=== PATIENT | male | born 1960 | race Caucasian/White ===

== ENCOUNTER 2018-04-18 17:54 | Inpatient (IN) | payer OTHER ==
[2018-04-18] MEDS: morphine 4 MG/ML VIAL IV (21:53)
[2018-04-18] MEDS: SOD CHLORIDE 0.9% 1,000 ML IV (21:53)
[2018-04-18] MEDS: FAMOTIDINE 20 MG INJ IV (21:53)
[2018-04-18] MEDS: ONDANSETRON 4 MG INJ IV (21:53)
[2018-04-18 22:13] LABS: ADD MAN DIFF? NO
[2018-04-18 22:16] LABS: ABNORMAL IP MESSAGE 1; BASOPHILS % 0.2 % (0.0-2.0); EOSINOPHILS # 0.9 10^3/ul (0.0-0.5); EOSINOPHILS % 5.2 % (0.0-7.0); HEMOGLOBIN 15.4 g/dl (14.0-18.0); LYMPHOCYTES # 1.3 10^3/ul (0.8-2.9); LYMPHOCYTES % 7.5 % (15.0-51.0); MEAN CORPUSCULAR HEMOGLOBIN 28.8 pg (29.0-33.0); MEAN CORPUSCULAR HGB CONC 34.2 g/dl (32.0-37.0); MEAN CORPUSCULAR VOLUME 84.1 fl (82.0-101.0); MEAN PLATELET VOLUME 10.1 fl (7.4-10.4); MONOCYTE # 1.8 10^3/ul (0.3-0.9); MONOCYTES % 10.4 % (0.0-11.0); NEUTROPHIL # 12.9 10^3/ul (1.6-7.5); NEUTROPHILS % 76.1 % (39.0-77.0); PLATELET COUNT 317 10^3/UL (140-415); POSITIVE DIFF @See below; RED BLOOD COUNT 5.35 10^6/ul (4.70-6.10); RED CELL DISTRIBUTION WIDTH 12.9 % (11.5-14.5)
[2018-04-18 22:19] LABS: ADD UMIC YES; UR ASCORBIC ACID 20 mg/dL (NEGATIVE); UR BACTERIA FEW /HPF (NONE SEEN); UR BILIRUBIN (Dip) NEGATIVE (NEGATIVE); UR BLOOD (Dip) NEGATIVE (NEGATIVE); UR CLARITY CLEAR (CLEAR); UR COLOR YELLOW (YELLOW); UR GLUCOSE (Dip) NEGATIVE (NEGATIVE); UR KETONES (Dip) NEGATIVE (NEGATIVE); UR LEUKOCYTE ESTERASE (Dip) NEGATIVE Leu/ul (NEGATIVE); UR NITRITE (Dip) NEGATIVE (NEGATIVE); UR RBC 0 /HPF (0-5); UR SPECIFIC GRAVITY (Dip) 1.018 (1.003-1.030); UR TOTAL PROTEIN (Dip) 2+ mg/dl (NEGATIVE); UR UROBILINOGEN (Dip) NEGATIVE (NEGATIVE); UR WBC 1 /HPF (0-5)
[2018-04-18 22:50] LABS: ALANINE AMINOTRANSFERASE 38 IU/L (13-69); ALBUMIN 4.9 g/dl (3.3-4.9); ALBUMIN/GLOBULIN RATIO 1.58; ALKALINE PHOSPHATASE 53 IU/L (42-121); ANION GAP 15 (5-13); ASPARTATE AMINO TRANSFERASE 42 IU/L (15-46); BILIRUBIN,INDIRECT 0.3 mg/dl (0-1.1); BILIRUBIN,TOTAL 0.3 mg/dl (0.2-1.3); BLOOD UREA NITROGEN 77 mg/dl (7-20); CALCIUM 9.7 mg/dl (8.4-10.2); CARBON DIOXIDE 22 mmol/L (21-31); CHLORIDE 96 mmol/L (97-110); CREATININE 3.04 mg/dl (0.61-1.24); Estimated GFR 21 mL/min (>60); GLUCOSE 106 mg/dl (70-220); LIPASE 905 U/L (23-300); POTASSIUM 4.2 mmol/L (3.5-5.1); SODIUM 133 mmol/L (135-144)
[2018-04-19] MEDS ORDERED: DOCUSATE SODIUM 100 MG CAP PO
[2018-04-19] MEDS ORDERED: NACL 0.9% 3 ML SYG IV
[2018-04-19] MEDS ORDERED: BISACODYL (EC) 5 MG TAB PO
[2018-04-19 00:14] LABS: ETHANOL < 10.0 mg/dl (0-0)
[2018-04-19] MEDS: SOD CHLORIDE 0.9% 1,000 ML IV ×5 (01:31→19:44)
[2018-04-19 01:34] LABS: SODIUM,URINE RANDOM < 13 mmol/L (30-90)
[2018-04-19 01:36] LABS: CREATININE,URINE RANDOM 159.22 mg/dl (20-370); PROTEIN/CREAT RATIO 0.38 RATIO
[2018-04-19 05:15] LABS: ADD MAN DIFF? NO
[2018-04-19 05:24] LABS: WHITE BLOOD COUNT 17.7 10^3/ul (4.8-10.8)
[2018-04-19 05:24] LABS: ABNORMAL IP MESSAGE 1; BASOPHILS % 0.2 % (0.0-2.0); EOSINOPHILS # 1.4 10^3/ul (0.0-0.5); EOSINOPHILS % 7.7 % (0.0-7.0); HEMATOCRIT 37.8 % (42.0-52.0); HEMOGLOBIN 13.1 g/dl (14.0-18.0); LYMPHOCYTES # 1.9 10^3/ul (0.8-2.9); LYMPHOCYTES % 10.7 % (15.0-51.0); MEAN CORPUSCULAR HEMOGLOBIN 29.2 pg (29.0-33.0); MEAN CORPUSCULAR HGB CONC 34.7 g/dl (32.0-37.0); MEAN CORPUSCULAR VOLUME 84.4 fl (82.0-101.0); MONOCYTES % 11.3 % (0.0-11.0); NEUTROPHIL # 12.3 10^3/ul (1.6-7.5); NEUTROPHILS % 69.5 % (39.0-77.0); PLATELET COUNT 257 10^3/UL (140-415); POSITIVE DIFF @See below; RED BLOOD COUNT 4.48 10^6/ul (4.70-6.10); RED CELL DISTRIBUTION WIDTH 12.9 % (11.5-14.5)
[2018-04-19 05:51] LABS: ALANINE AMINOTRANSFERASE 33 IU/L (13-69); ALBUMIN 3.6 g/dl (3.3-4.9); ALBUMIN/GLOBULIN RATIO 1.28; ALKALINE PHOSPHATASE 35 IU/L (42-121); ANION GAP 10 (5-13); ASPARTATE AMINO TRANSFERASE 28 IU/L (15-46); BILIRUBIN,INDIRECT 0.4 mg/dl (0-1.1); BILIRUBIN,TOTAL 0.4 mg/dl (0.2-1.3); BLOOD UREA NITROGEN 68 mg/dl (7-20); CALCIUM 8.4 mg/dl (8.4-10.2); CARBON DIOXIDE 22 mmol/L (21-31); CHLORIDE 102 mmol/L (97-110); CHOL/HDL RATIO 4.4 RATIO; CHOLESTEROL 103 mg/dl (100-200); CREATININE 2.48 mg/dl (0.61-1.24); Estimated GFR 27 mL/min (>60); GLUCOSE 84 mg/dl (70-220); HDL CHOLESTEROL 23 mg/dl (30-78); LDL CHOLESTEROL,CALCULATED 56 mg/dl; MAGNESIUM 2.2 mg/dl (1.7-2.5); POTASSIUM 4.2 mmol/L (3.5-5.1); SODIUM 134 mmol/L (135-144); TOTAL PROTEIN 6.4 g/dl (6.1-8.1); TRIGLYCERIDES 118 mg/dl (0-149)
[2018-04-19 06:43] LABS: HEMOGLOBIN A1C 6.1 % (0-5.9)
[2018-04-19 07:32] LABS: LIPASE 3211 U/L (23-300)
[2018-04-19] MEDS ORDERED: LISINOPRIL 20 MG TAB PO (09:00)
[2018-04-19] MEDS: AMLODIPINE 5 MG TAB PO (10:41)
[2018-04-19] MEDS ORDERED: GLUCOSE GEL 15 GRAM TUBE PO ×2 (17:00)
[2018-04-19] MEDS ORDERED: GLUCAGON 1 MG INJ IM (17:00)
[2018-04-19] MEDS ORDERED: GLUCOSE GEL 15 GRAM TUBE BUCCAL (17:00)
[2018-04-19] MEDS ORDERED: DEXTROSE 50% 50 ML SYRINGE IV ×2 (17:00)
[2018-04-19] MEDS: metroNIDAZOLE 500 MG/NS (PMX) 100 ML IVPB (17:27)
[2018-04-19] MEDS: INSULIN ASPART [NOVOLOG] 3 ML PEN SC ×2 (17:46→20:16)
[2018-04-19] MEDS: CIPROFLOXACIN 400MG/D5W 200 ML IVPB (18:46)
[2018-04-19] MEDS: INFLUENZA VIRUS VACCINE 0.5 ML (DISPENSING) IM* (18:49)
[2018-04-19] MEDS: HYDROmorphONE 0.5 MG/0.5 ML SYG IV (20:37)
[2018-04-20] MEDS: SOD CHLORIDE 0.9% 1,000 ML IV ×5 (00:09→20:44)
[2018-04-20] MEDS: ACCU-CHEK XX (02:00)
[2018-04-20 05:03] LABS: ADD MAN DIFF? NO
[2018-04-20 05:06] LABS: BASOPHILS % 0.2 % (0.0-2.0); EOSINOPHILS # 1.4 10^3/ul (0.0-0.5); EOSINOPHILS % 10.6 % (0.0-7.0); HEMATOCRIT 35.6 % (42.0-52.0); HEMOGLOBIN 12.2 g/dl (14.0-18.0); LYMPHOCYTES % 7.8 % (15.0-51.0); MEAN CORPUSCULAR HEMOGLOBIN 29.3 pg (29.0-33.0); MEAN CORPUSCULAR HGB CONC 34.3 g/dl (32.0-37.0); MEAN CORPUSCULAR VOLUME 85.4 fl (82.0-101.0); MEAN PLATELET VOLUME 9.8 fl (7.4-10.4); MONOCYTE # 1.4 10^3/ul (0.3-0.9); MONOCYTES % 10.9 % (0.0-11.0); NEUTROPHIL # 9.1 10^3/ul (1.6-7.5); PLATELET COUNT 234 10^3/UL (140-415); RED BLOOD COUNT 4.17 10^6/ul (4.70-6.10); RED CELL DISTRIBUTION WIDTH 12.5 % (11.5-14.5)
[2018-04-20] MEDS: metroNIDAZOLE 500 MG/NS (PMX) 100 ML IVPB ×3 (05:07→20:57)
[2018-04-20 05:30] LABS: MAGNESIUM 2.2 mg/dl (1.7-2.5)
[2018-04-20 05:30] LABS: LIPASE 742 U/L (23-300)
[2018-04-20 05:41] LABS: ALANINE AMINOTRANSFERASE 34 IU/L (13-69); ALBUMIN 3.2 g/dl (3.3-4.9); ALBUMIN/GLOBULIN RATIO 1.33; ALKALINE PHOSPHATASE 35 IU/L (42-121); ANION GAP 14 (5-13); ASPARTATE AMINO TRANSFERASE 20 IU/L (15-46); BILIRUBIN,INDIRECT 0.3 mg/dl (0-1.1); BILIRUBIN,TOTAL 0.3 mg/dl (0.2-1.3); BLOOD UREA NITROGEN 41 mg/dl (7-20); CALCIUM 8.2 mg/dl (8.4-10.2); CARBON DIOXIDE 23 mmol/L (21-31); CHLORIDE 102 mmol/L (97-110); CREATININE 1.75 mg/dl (0.61-1.24); Estimated GFR 40 mL/min (>60); GLUCOSE 96 mg/dl (70-220); POTASSIUM 4.3 mmol/L (3.5-5.1); SODIUM 139 mmol/L (135-144); TOTAL PROTEIN 5.6 g/dl (6.1-8.1)
[2018-04-20 05:56] LABS: THYROID STIMULATING HORMONE 0.787 MIU/L (0.465-4.680)
[2018-04-20] MEDS: INSULIN ASPART [NOVOLOG] 3 ML PEN SC ×4 (07:50→21:00)
[2018-04-20] MEDS: CIPROFLOXACIN 400MG/D5W 200 ML IVPB ×2 (08:29→20:56)
[2018-04-20] MEDS: FAMOTIDINE 20 MG INJ IV (08:29)
[2018-04-20] MEDS: AMLODIPINE 5 MG TAB PO (08:30)
[2018-04-20] MEDS: ENOXAPARIN 30 MG/0.3 ML SYG SC (08:32)
[2018-04-20] MEDS: ACETAMINOPHEN 325 MG TAB PO (10:02)
[2018-04-21] MEDS: SOD CHLORIDE 0.9% 1,000 ML IV (01:54)
[2018-04-21] MEDS: HYDROmorphONE 0.5 MG/0.5 ML SYG IV ×3 (01:54→19:38)
[2018-04-21] MEDS: ACCU-CHEK XX (02:00)
[2018-04-21] MEDS: metroNIDAZOLE 500 MG/NS (PMX) 100 ML IVPB ×2 (05:51→14:10)
[2018-04-21] MEDS: PANTOPRAZOLE 40 MG INJ IV (05:51)
[2018-04-21] MEDS: INSULIN ASPART [NOVOLOG] 3 ML PEN SC ×4 (07:50→21:00)
[2018-04-21] MEDS: CIPROFLOXACIN 400MG/D5W 200 ML IVPB (08:34)
[2018-04-21 08:35] LABS: ADD MAN DIFF? NO
[2018-04-21] MEDS: AMLODIPINE 5 MG TAB PO (08:35)
[2018-04-21] MEDS: ENOXAPARIN 30 MG/0.3 ML SYG SC (08:39)
[2018-04-21 08:53] LABS: WHITE BLOOD COUNT 10.2 10^3/ul (4.8-10.8)
[2018-04-21 08:53] LABS: BASOPHILS % 0.4 % (0.0-2.0); EOSINOPHILS # 1.4 10^3/ul (0.0-0.5); EOSINOPHILS % 13.9 % (0.0-7.0); HEMATOCRIT 35.2 % (42.0-52.0); LYMPHOCYTES # 1.1 10^3/ul (0.8-2.9); LYMPHOCYTES % 10.5 % (15.0-51.0); MEAN CORPUSCULAR HEMOGLOBIN 29.3 pg (29.0-33.0); MEAN CORPUSCULAR HGB CONC 34.1 g/dl (32.0-37.0); MEAN CORPUSCULAR VOLUME 86.1 fl (82.0-101.0); MEAN PLATELET VOLUME 9.8 fl (7.4-10.4); MONOCYTE # 1.1 10^3/ul (0.3-0.9); MONOCYTES % 10.9 % (0.0-11.0); NEUTROPHIL # 6.5 10^3/ul (1.6-7.5); NEUTROPHILS % 63.7 % (39.0-77.0); PLATELET COUNT 210 10^3/UL (140-415); RED BLOOD COUNT 4.09 10^6/ul (4.70-6.10); RED CELL DISTRIBUTION WIDTH 12.2 % (11.5-14.5)
[2018-04-21 09:11] LABS: ANION GAP 10 (5-13); BLOOD UREA NITROGEN 24 mg/dl (7-20); CALCIUM 8.2 mg/dl (8.4-10.2); CARBON DIOXIDE 26 mmol/L (21-31); CHLORIDE 101 mmol/L (97-110); CREATININE 1.54 mg/dl (0.61-1.24); Estimated GFR 46 mL/min (>60); GLUCOSE 102 mg/dl (70-220); POTASSIUM 4.2 mmol/L (3.5-5.1); SODIUM 137 mmol/L (135-144)
[2018-04-21] MEDS: ONDANSETRON 4 MG INJ IV (14:10)
[2018-04-21] MEDS ORDERED: HYDROCODONE/APAP (5/325) TAB PO (16:30)
[2018-04-21] MEDS ORDERED: PIPER-TAZO 3.375 GM IV (PMX) 100 ML (16:48)
[2018-04-21] MEDS: hydrALAzine 20 MG INJ IV ×2 (16:58→20:31)
[2018-04-21] MEDS: PIPER-TAZO 2.25 GM (PMX) 50 ML IVPB ×2 (18:12→23:54)
[2018-04-21] MEDS: METOCLOPRAMIDE 10 MG INJ IV (19:38)
[2018-04-22] MEDS: ACCU-CHEK XX (02:00)
[2018-04-22] MEDS: PIPER-TAZO 2.25 GM (PMX) 50 ML IVPB ×4 (05:25→23:57)
[2018-04-22] MEDS: PANTOPRAZOLE (EC) 40 MG TAB PO (05:25)
[2018-04-22] MEDS: INSULIN ASPART [NOVOLOG] 3 ML PEN SC ×4 (07:50→21:00)
[2018-04-22] MEDS: AMLODIPINE 5 MG TAB PO (08:45)
[2018-04-22] MEDS: ENOXAPARIN 30 MG/0.3 ML SYG SC (08:49)
[2018-04-22 13:23] LABS: ANION GAP 12 (5-13); BLOOD UREA NITROGEN 25 mg/dl (7-20); CALCIUM 8.6 mg/dl (8.4-10.2); CARBON DIOXIDE 27 mmol/L (21-31); CHLORIDE 95 mmol/L (97-110); CREATININE 1.68 mg/dl (0.61-1.24); Estimated GFR 42 mL/min (>60); GLUCOSE 160 mg/dl (70-220); PHOSPHORUS 3.1 mg/dl (2.5-4.9); POTASSIUM 3.9 mmol/L (3.5-5.1); SODIUM 134 mmol/L (135-144)
[2018-04-23] MEDS: ACCU-CHEK XX (02:00)
[2018-04-23 05:20] LABS: ANION GAP 13 (5-13); BLOOD UREA NITROGEN 22 mg/dl (7-20); CALCIUM 8.6 mg/dl (8.4-10.2); CARBON DIOXIDE 27 mmol/L (21-31); CHLORIDE 96 mmol/L (97-110); CREATININE 1.58 mg/dl (0.61-1.24); Estimated GFR 45 mL/min (>60); GLUCOSE 139 mg/dl (70-220); PHOSPHORUS 2.9 mg/dl (2.5-4.9); POTASSIUM 3.9 mmol/L (3.5-5.1); SODIUM 136 mmol/L (135-144)
[2018-04-23] MEDS: PANTOPRAZOLE (EC) 40 MG TAB PO (05:39)
[2018-04-23] MEDS: PIPER-TAZO 2.25 GM (PMX) 50 ML IVPB ×2 (05:39→13:30)
[2018-04-23] MEDS: INSULIN ASPART [NOVOLOG] 3 ML PEN SC ×2 (09:21→13:26)
[2018-04-23] MEDS: AMLODIPINE 5 MG TAB PO (09:22)
[2018-04-23] MEDS: ENOXAPARIN 30 MG/0.3 ML SYG SC (09:26)
== END 2018-04-23 15:25 | disposition home or self-care (01) | DRG 439 ==
LOC: MS1 23:40 → E/R 17:54
DX: K85.90 Acute pancreatitis without necrosis or infection, unspecified (principal); N17.9 Acute kidney failure, unspecified; E87.0 Hyperosmolality and hypernatremia; R65.10 Systemic inflammatory response syndrome (SIRS) of non-infectious origin without acute organ dysfunction; K57.32 Diverticulitis of large intestine without perforation or abscess without bleeding; E11.22 Type 2 diabetes mellitus with diabetic chronic kidney disease; E86.0 Dehydration; I12.9 Hypertensive chronic kidney disease with stage 1 through stage 4 chronic kidney disease, or unspecified chronic kidney disease; N18.9 Chronic kidney disease, unspecified; E78.5 Hyperlipidemia, unspecified; D63.1 Anemia in chronic kidney disease; Z91.14 Patient's other noncompliance with medication regimen; Z87.11 Personal history of peptic ulcer disease
CPT/HCPCS: 36415; 71045; 74176; 76775; 80048; 80053; 80061; 80307; 81001; 81003; 82570; 82962; 83036; 83690; 83735; 84100; 84300; 84443; 85025; 87040; 90686; 96361; 96374; 96375; 99285-25